=== PATIENT | female | born 1995 | race African-American/Black ===

== ENCOUNTER 2021-07-01 13:51 | Emergency (ER) | payer OTHER ==
[~2021-07-01] VITALS: Ht 152.4 cm; Wt 61.0 kg
[2021-07-01 13:54] VITALS: BP 139/76
[2021-07-01] MEDS ORDERED: ONDANSETRON 4MG ODT PO NR (15:00)
[2021-07-01 15:58] LABS: BASOPHILS % 0.7 % (0.0-2.0); EOSINOPHILS % 1.2 % (0.0-5.0); HEMATOCRIT. 36.2 % (36.0-48.0); HEMOGLOBIN. 11.2 g/dL (12.0-16.0); LYMPHOCYTES % 20.4 % (20.0-50.0); MEAN CORPUSCULAR HEMOGLOBIN 21.3 pg (28.0-32.0); MEAN CORPUSCULAR VOLUME 68.8 fL (81.0-99.0); MEAN PLATELET VOLUME 7.9 fl (7.4-10.4); MONOCYTES % 7.7 % (2.0-8.0); PLATELET 298 x1000/uL (130-400); RED BLOOD CELL COUNT 5.27 mill/uL (4.2-5.4); RED CELL DISTRIBUTION WIDTH 18.4 % (11.6-14.6)
[2021-07-01 16:04] LABS: CHLORIDE 111 mEq/L (98-107)
[2021-07-01 17:42] LABS: PLATELET ESTIMATE NORMAL
== END 2021-07-01 21:28 | disposition left against medical advice (07) ==
LOC: ER 13:51
DX: O26.891 Other specified pregnancy related conditions, first trimester (principal); R11.2 Nausea with vomiting, unspecified; R00.0 Tachycardia, unspecified; Z53.21 Procedure and treatment not carried out due to patient leaving prior to being seen by health care provider; Z3A.01 Less than 8 weeks gestation of pregnancy
CPT/HCPCS: 36415; 80053; 85025; 86850; 86900; 93005; 99284